=== PATIENT | female | born 1950 | race Caucasian/White ===

== ENCOUNTER 2018-03-11 09:21 | Emergency (ER) | payer OTHER ==
[~2018-03-11] VITALS: Ht 154.9 cm; Wt 80.5 kg
[2018-03-11 09:24] VITALS: BP 177/78
== END 2018-03-11 09:39 | disposition left against medical advice (07) ==
LOC: EME 09:21
DX: M79.605 Pain in left leg (principal); Z53.21 Procedure and treatment not carried out due to patient leaving prior to being seen by health care provider